=== PATIENT | male | born 1990 ===

== ENCOUNTER 2017-07-05 13:50 | Emergency (ER) | payer OTHER ==
[~2017-07-05] VITALS: Ht 167.6 cm; Wt 77.0 kg
[2017-07-05 14:03] VITALS: PULSE 63; RESP 18; TEMP 98.4; O2SAT 99
--- NOTE | 2017-07-05 15:43 | PD ---
HPI Chief Complaint: Laceration/Skin Injury Time Seen by Provider: 15:02 Travel History International Travel<30 days: No Contact w/Intl Traveler<30days: No Traveled to known affect area: No History of Present Illness HPI 36-year-old male here with a laceration to the right thumb caused by a razor blade. Injury occurred at work. He reports normal sensation and full range of motion of the finger. Symptom severity moderate. No aggravating or alleviating factors. Tetanus immunization is up-to-date. PFSH Past Medical History Diminished Hearing: Yes ([place]) Tetanus Vaccination: > 5 Years Influenza Vaccination: No ?: Not Social History Alcohol Use: Yes Tobacco Use: No Allergies-Medications (Allergen,Severity, Reaction): Coded Allergies: No Known Allergies (Unverified Adverse Reaction, Unknown, 07/05/17) Reported Meds & Prescriptions Reported Meds & Active Scripts Active No Active Prescriptions or Reported Medications Review of Systems Except as stated in HPI: all other systems reviewed are Neg Physical Exam Narrative GENERAL: Alert well-appearing 26-year-old male. SKIN: Warm and dry. 1.5 cm laceration to the right thumb medial aspect HEAD: Normocephalic. EYES: No injection or drainage. NECK: Supple CARDIOVASCULAR: Regular rate and rhythm RESPIRATORY: Breath sounds equal bilaterally. No accessory muscle use. MUSCULOSKELETAL: No cyanosis, or edema. Right hand: 1.5 cm laceration to the right thumb medial/volar aspect. No tendon or vascular injury identified. Patient can flex and extend the thumb against resistance. Normal sensation distally. Brisk cap refill. Data Data Last Documented VS Vital Signs Date Time Temp Pulse Resp B/P (MAP) Pulse Ox O2 Delivery O2 Flow Rate FiO2 07/05/17 14:03 98.4 63 18 99 MDM Medical Decision Making Medical Screen Exam Complete: Yes Emergency Medical Condition: Yes Differential Diagnosis Laceration, tendon injury, vascular injury Narrative Course 26-year-old male here with laceration to the right thumb. Digit is neurovascular intact. Laceration repair performed. Procedures Procedure Narrative LACERATION LOCATION: Right thumb LENGTH: 1.5 cm NUMBER OF STITCHES/BRISEIDA: 5 REPAIR: The area of the laceration was prepped with Betadine and sterilely draped. Digital block performed using 1% lidocaine. The wound was copiously irrigated and explored without evidence of foreign body, tendon injury or neurovascular injury. The wound was closed using 3-0 Ethilon. This was a SINGLE layer repair. A sterile dressing was applied. The patient was advised to keep the dressing clean and dry. Patient tolerated the procedure well. Diagnosis Primary Impression: Thumb laceration Qualified Codes: S61.011A - Laceration without foreign body of right thumb without damage to nail, initial encounter Referrals: Primary Care Physician Additional Instructions: Sutures need be removed in 7-10 days. Do not submerge the wound in water. Follow-up the primary doctor for recheck. Return if he developed new or worsening symptoms. Scripts No Active Prescriptions or Reported Meds Disposition: 01 DISCHARGE HOME Condition: Stable Darline Delgado Jul 05, 2017 15:43
== END 2017-07-05 15:53 | disposition home or self-care (01) ==
LOC: PHEFT 13:50
DX: S61.011A Laceration without foreign body of right thumb without damage to nail, initial encounter (principal); H91.93 Unspecified hearing loss, bilateral; W45.8XXA Other foreign body or object entering through skin, initial encounter; Y99.0 Civilian activity done for income or pay
CPT/HCPCS: 12001